=== PATIENT | female | born 1990 | race Caucasian/White ===

== ENCOUNTER 2020-05-19 07:51 | Emergency (ER) | payer BC ==
[~2020-05-19] VITALS: Ht 162.6 cm; Wt 61.7 kg
[2020-05-19] MEDS ORDERED: ONDA4TAB7 PO (08:09)
--- NOTE | 2020-05-19 08:14 | PHYS DOC ---
Adult General Chief Complaint Chief Complaint: MULTIPLE COMPLAINTS [facility] HPI Patient is a 30-year-old previously healthy female who presents to the emergency room complaining of viral symptoms. Patient states that she was exposed to novel coronavirus 12 days ago. She started having symptoms 1 week ago. She states that she has some nausea, vomiting, diarrhea, change in taste, change of smell. She denies any cough or shortness of breath. She states she needs documentation for work but states that she was exposed and was supposed to be quarantining. She does not have any significant respiratory issues or fever. She is starting to get better. Review of Systems Review of Systems Complete ROS is negative unless otherwise documented in HPI Physical Exam Physical Exam General: Awake, alert, NAD. Well Nourished, well hydrated. Cooperative HEENT: Atraumatic, EOMI, PERRL, airway patent, moist oral mucosa Neck: Supple, trachea midline Respiratory: CTA bilaterally, normal effort, no wheezing/crackles CV: RRR, no murmur, cap refill <2 GI: Soft, nondistended, nontender, no masses MSK: No obvious deformities Skin: Warm, dry, intact Neuro: A&O x3, speech NL, sensory and motor grossly intact, no focal deficits Psych: Normal affect, normal mood, not suicidal or homicidal EKG EKG [] Radiology/Procedures Radiology/Procedures [] Heart Score Risk Factors: Risk Factors: DM, Current or recent (<one month) smoker, HTN, HLP, family history of CAD, obesity. Risk Scores: Risk Factors: DM, Current or recent (<one month) smoker, HTN, HLP, family history of CAD, obesity. Course & Med Decision Making Course & Med Decision Making Pertinent Labs and Imaging studies reviewed. (See chart for details) Patient is a 30-year-old female who presents to the emergency room with multiple symptoms. Patient likely has novel coronavirus 19. Did give her a work note for quarantine. She will be prescribed nausea medicine. Patient does not have any respiratory distress, hypoxia, shortness of breath, significant weakness. She does not need further work-up or lab at this time. Patient is stable and will be discharged home to continue quarantine. I have discussed with her that she will need to quarantine until she is symptom-free for 72 hours. Patient's t est results and vitals while in the ED were fully reviewed and discussed with the patient. Patient is stable and at this time does not need admission to the hospital. We have discussed strict return precautions and the importance of following up with their Primary Care Physician. Patient stated understanding and was given an opportunity to ask any questions. Patient is in agreement with plan. Dragon Disclaimer Dragon Disclaimer This electronic medical record was generated, in whole or in part, using a voice recognition dictation system. Departure Departure: Impression: Primary Impression: Suspected 2019 novel coronavirus infection Disposition: 01 DC HOME SELF CARE/HOMELESS Condition: STABLE Referrals: PCP,NO (PCP) Patient Instructions: Viral Syndrome Additional Instructions: Thank you for visiting [facility]. We appreciate you trusting us with your care. If any additional problems come up please don't hesitate to return to visit us. Follow up with your primary care provider so they can plan additional care if needed and know about the problem that you had today. If symptoms worsen come back to the Emergency Department. Any concerning symptoms that start such as chest pain, shortness of air, weakness or numbness on one side of the body, running high fevers or any other concerning symptoms return to the ER. You have a viral syndrome which may include symptoms like muscle aches, fevers, chills, runny nose, cough, sneezing, sore throat, nausea, vomiting, or diarrhea. One of the potential viruses that you may have is SARS-CoV-2, the virus that c auses COVID-19, also known as the Coronavirus. You are just as likely to have a different viral infection such as the common cold, flu, etc. Most patients with the Coronavirus have mild symptoms and recover on their own. Resting, staying hydrated, and sleep based on known cases can be helpful. As of todays visit, you are well enough to go home and treat your symptoms with oral fluids and over the counter medications. Coronavirus testing is not performed on most people with mild symptoms who are being discharged from the emergency department. If Coronavirus testing was performed today the results will not be available for possibly up to 3-4 days. If your result is positive you will be contacted. Please follow the following precautions at home: 1. Stay home except to get medical care. 2. As advised by the CDC, we recommend that you stay in your home and minimize contact with other people. We do not want you to spread the infection. 3. Those who are older or have significant medical issues may have more severe symptoms from this infection. We recommend self-isolation FOR AT LEAST 7 DAYS after your 1st day of symptoms. AFTER you feel better please wait AT LEAST 72 hours before returning to regular activities and being around other people. 4. IF you become sicker and have difficulty breathing, chest pain, are unable to eat/drink, severe vomiting, diarrhea, or weakness you may need to return to the Emergency Department. 5. You should restrict activities outside of your home, except for getting medical care. DO NOT go to work, school, or public areas. Avoid using public transportation, ride sharing, or taxis. 6. Separate yourself from other people in your home. You should use a separate bathroom if possible. 7. Avoid sharing personal household items such as dishes, cups, eating utensils, towels, etc. 8. Clean all high touch surfaces every day (door knobs, counter tops, etc). Use a household cleaning spray or wipe per label instructions. 9. Clean your hands often. Wash your hands with soap and water for at least 20 seconds. 10. Cover your mouth and nose when you cough or sneeze. 11. Throw used tissues in the trash and immediately wash your hands. For additional resources please visit the CDC website or the [facility] ([phone]), you may also call 211 for further information. Scripts Ondansetron Hcl (ZOFRAN) 4 Mg Tablet 1 TAB PO PRN Q6HRS PRN for NAUSEA, #10 TAB Prov: TORSTEN SMALL MD 05/19/20 TORSTEN SMALL MD May 19, 2020 08:14
[2020-05-19 08:40] VITALS: BP 122/82
== END 2020-05-19 08:45 | disposition home or self-care (01) ==
LOC: ER 07:51
DX: R11.2 Nausea with vomiting, unspecified (principal); R19.7 Diarrhea, unspecified; Z20.822 Contact with and (suspected) exposure to COVID-19
CPT/HCPCS: 99283; C9803; U0003

== ENCOUNTER 2020-11-07 18:41 | Emergency (ER) | payer BC ==
[~2020-11-07] VITALS: Ht 162.6 cm; Wt 61.8 kg
[~2020-11-07 18:41] MED LIST: ONDA4TAB7 PO
[2020-11-07 18:55] VITALS: BP 130/57
--- NOTE | 2020-11-07 19:09 | PHYS DOC ---
Past History Past Medical History: No Pertinent History (ANUP KITCHNE APRN) Past Surgical History: Other Additional Past Surgical Histo: BLADDER X3 (ANUP KITCHEN APRN) Alcohol Use: Occasionally (ANUP KITCHEN APRN) General Adult EDM: Chief Complaint: FINGER INJURY HPI: HPI: Patient is a 30-year-old female who presents to the ER for right third finger pain that occurred after garage door fell onto yesterday night. Patient reports that she went to work today. She rates her pain 10 out of 10, no treatment prior to arrival, no radiation of pain, pain is worse with movement and palpation. Patient denies any decreased sensation or decreased range of motion to extremity. (ANUP KITCHEN APRN) Review of Systems: Review of Systems: 14 body systems of the review of systems have been reviewed. See HPI for pertinent positive and negative responses, otherwise all other systems are negative, nonpertinent or noncontributory (ANUP KITCHEN APRN) Allergies: Allergies: Allergies Coded Allergies Type Severity Reaction Last Updated Verified ibuprofen Allergy Unknown Hives 05/19/20 Yes (ANUP KITCHEN APRN) Physical Exam: PE: Constitutional: Well developed, well nourished, no acute distress, non-toxic appearance. [] HENT: Normocephalic, atraumatic Eyes: PERRL, conjunctiva normal, no discharge. [] Neck: Normal range of motion, no stridor Cardiovascular: Normal peripheral perfusion Lungs & Thorax: Normal work of breathing, no tachypnea Skin: Warm, dry, no erythema, no rash. [] Back: Normal range of motion Extremities: No tenderness, no cyanosis, no clubbing, ROM intact, no edema. Right third finger: Mild swelling noted to the DIP joint, no wounds/ecchymosis, range of motion intact, neuro intact, pain with palpation of the DIP joint, nailbed appears stable and there is no laceration patient has artificial nail. [] Neurologic: Alert and oriented X 3, normal motor function, normal sensory function, no focal deficits noted. [] Psychologic: Affect normal, judgement normal, mood normal. [] (ANUP KITCHEN APRN) EKG: EKG: [] (ANUP KITCHEN APRN) Radiology/Procedures: Radiology/Procedures: PROCEDURE: FINGER(S) RIGHT Study: XR FINGER(S)_RIGHT 2+VIEWS Indication: Finger injury. Comparison: None. Findings: No acute fracture seen to involve the long finger or rest of the partially assessed hand. No traumatic malalignment. Joint spaces are maintained. No retained radiopaque foreign body. Impression: No acute osseous abnormality with particular attention paid to the long finger. Electronically signed by: MELISSA HEATH MD (11/07/2020 7:19 PM) [facility] DICTATED AND SIGNED BY: MELISSA HEATH MD DATE: 11/07/201917 CC: EMERGENCY,DEPARTMENT; ANUP KITCHEN APRN; PCP,NO ~MTH0 0 (ANUP KITCHEN APRN) Heart Score: C/O Chest Pain: No Risk Factors: Risk Factors: DM, Current or recent (<one month) smoker, HTN, HLP, family history of CAD, obesity. Risk Scores: Score 0 - 3: 2.5% MACE over next 6 weeks - Discharge Home Score 4 - 6: 20.3% MACE over next 6 weeks - Admit for Clinical Observation Score 7 - 10: 72.7% MACE over next 6 weeks - Early Invasive Strategies (ANUP KITCHEN APRN) Course & Med Decision Making: Course & Med Decision Making Pertinent Labs and Imaging studies reviewed. (See chart for details) Patient is a 30-year-old female being seen for right third finger injury after smashing it in a garage door yesterday night. An x-ray was performed of the finger that showed no acute fracture. Patient was also given pain medication in the ER. Patient's finger was placed in an aluminum finger splint. I discussed with patient all findings and diagnostic testing as well as the need to follow- up with PCP for further evaluation and treatment or return to the ER if any new or worsening symptoms. Strict return precautions were also discussed at length. Patient voiced understanding and agreement with the plan. Patient is hemodynamically stable at the time of disposition. (ANUP KITCHEN APRN) Course & Med Decision Making Did not see or evaluate patient. Agree with ENTERPRISE ARCHITECT's work-up and disposition per jocelyn barajas. (KHALIDA LAYNE MD) Dragon Disclaimer: Dragon Disclaimer: This electronic medical record was generated, in whole or in part, using a voice recognition dictation system. (ANUP KITCHEN APRN) Departure Departure: Impression: Primary Impression: Finger contusion Qualified Codes: S60.031A - Contusion of right middle finger without damage to nail, initial encounter Disposition: HOME / SELF CARE / HOMELESS Condition: GOOD Referrals: PCP,FRANCIS (PCP) Patient Instructions: Crush Injury, Fingers or Toes Additional Instructions: You were seen in the emergency department today for a musculoskeletal problem that will likely improve over time. Your symptoms may be improved by something called the rice protocol. This is rest, ice, compression, elevation. Please follow-up when doing intense exercises that may make the pain worse. Sometimes gentle stretching can provide relief, but be careful to injury. It is important to perform gentle range of motion exercises to prevent stiff joints and chronic pain. Use ice packs over the affected areas to help decrease your pain. For the first 24 hours you can apply ice 20 minutes on 20 minutes off for 4 times per day. Wear the aluminum finger splint to help with pain. You may also elevate the affected area to help with the swelling. You can take Tylenol at home for pain. EMERGENCY DEPARTMENT GENERAL DISCHARGE INSTRUCTIONS Thank you for coming to [facility] (ED) today and trusting us with you care. We trust that you had a positivie experience in our Emergency Department. If you wish to speak to the department management, you may call the director at [phone]. YOUR FOLLOW UP INSTRUCTIONS ARE FOLLOWS: 1. Do you have a private Doctor? If you do not have a private doctor, please a sk for a resource list of physicians or clinics that may be able to assist you with follow up care. 2. The Emergency Physician has interpreted your x-rays. The X-Ray specialist will also review them. If there is a change in the findings, you will be notified in 48 hours when at all possible. 3. A lab test or culture has been done, your results will be reviewed and you will be notified if you need a change in treatment. ADDITIONAL INSTRUCTIONS AND INFORMATION: 1. Your care today has been supervised by a physician who is specially trained in emergency care. Many problems require more than one evaluation for a complete diagnosis and treatment. We recommend that you schedule your follow up appointment as recommended to ensure complete treatment of you illness or injury. If you are unable to obtain follow up care and continue to have a problem, or if your condition worsens, we recommend that you return to the ED. 2. We are not able to safely determine your condition over the phone nor are we able to give sound medical advice over the phone. For these safety reasons, if you call for medical advice we will ask you to come to the ED for further evaluation. 3. If you have any questions regarding these discharge instructions please call the ED at [phone]. SAFETY INFORMATION: In the interest of safety, wellness, and injury prevention; we encourage you to wear your sealbelt, if you smoke; quite smoking, and we encourage family to use a protective helmet for bicycling and other sporting events that present an increased risk for head injury. IF YOUR SYMPTOMS WORSEN OR NEW SYMPTOMS DEVELOP, OR YOU HAVE CONCERNS ABOUT YOUR CONDITION; OR IF YOUR CONDITION WORSENS WHILE YOU ARE WAITING FOR YOUR FOLLOW UP APPOINTMENT; EITHER CONTACT YOUR PRIMARY CARE DOCTOR, THE PHYSICIAN WHOSE NAME AND NUMBER YOU WERE GIVEN, OR RETURN TO THE ED IMMEDIATELY. ANUP KITCHEN APRN Nov 07, 2020 19:08 KHALIDA LAYNE MD Nov 08, 2020 00:41
--- NOTE | 2020-11-07 19:22 | RAD ---
Study: XR FINGER(S)_RIGHT 2+VIEWS Indication: Finger injury. Comparison: None. Findings: No acute fracture seen to involve the long finger or rest of the partially assessed hand. No traumati c malalignment. Joint spaces are maintained. No retained radiopaque foreign body. Impression: No acute osseous abnormality with particular attention paid to the long finger. Electronically signed by: MELISSA HEATH MD (11/07/2020 7:19 PM) [facility]
[2020-11-07] MEDS ORDERED: HYDROcodone/APAP 5/325MG 1 TAB TABLET PO ONE (19:30)
== END 2020-11-07 19:55 | disposition home or self-care (01) ==
LOC: ER 18:41
DX: S60.031A Contusion of right middle finger without damage to nail, initial encounter (principal); Z88.6 Allergy status to analgesic agent; W20.8XXA Other cause of strike by thrown, projected or falling object, initial encounter; Y93.89 Activity, other specified; Y92.89 Other specified places as the place of occurrence of the external cause; Y99.8 Other external cause status
CPT/HCPCS: 29130; 73140; 99283